=== PATIENT | male | born 1990 | race Caucasian/White ===

== ENCOUNTER → 2020-06-08 14:08 | Outpatient (CLI) | payer BC, SELFPAY ==
[2020-06-10 08:34] LABS: COVID19 Sendout Not Detected (Not Detect)
== END ==
PROVIDERS: Visit Provider Physician Assistant
DX: Z11.59 Encounter for screening for other viral diseases (principal)
CPT/HCPCS: 87635

== ENCOUNTER → 2020-10-20 16:22 | Outpatient (CLI) | payer OTHER, SELFPAY ==
--- NOTE | 2020-10-20 16:25 | DI.RAD.S_ITS ---
PROCEDURE: XR ANKLE RT MIN 3V INDICATIONS: Rolled ankle TECHNIQUE: 3 views of the ankle were acquired. COMPARISON: [facility], , ANKLE 3 VIEWS RIGHT, 05/10/2007, 9:42. FINDINGS: Bones: No acute fractures or dislocations. Likely old healed injury involving tip of medial malleolus is seen with well corticated fragments. Ankle mortise is normally aligned. No suspicious bony lesions. Soft tissues: Significant lateral ankle soft tissue swelling is seen. No tibiotalar joint effusion. Achilles tendon appears normal. IMPRESSION: No gross acute ankle fracture or dislocation. Moderate lateral ankle soft tissue swelling. Suggestion of old healed injuries involving tip of medial malleolus with corticated fragments. Dictated by: Isidoro Lozano M.D. on 10/20/2020 at 16:44 Approved by: Isidoro Lozano M.D. on 10/20/2020 at 16:45
== END ==
PROVIDERS: Referring Provider Physician Assistant; Visit Provider Physician Assistant
DX: M25.571 Pain in right ankle and joints of right foot (principal); M79.89 Other specified soft tissue disorders
CPT/HCPCS: 73610

== ENCOUNTER → 2024-09-15 16:59 | Outpatient (CLI) | payer BC, SELFPAY ==
--- NOTE | 2024-09-15 17:02 | DI.RAD.S_ITS ---
PROCEDURE: XR KNEE LT 3V INDICATIONS: Left knee pain TECHNIQUE: 3 views of the knee were acquired. COMPARISON: None. FINDINGS: Bones: No fractures or dislocations. No suspicious bony lesions. Soft tissues: No joint effusion. No suspicious soft tissue calcifications. Prepatellar swelling. IMPRESSION: No acute bony abnormality or significant effusion. Prepatellar soft tissue swelling. Dictated by: Benedict Aguilera M.D. on 09/15/2024 at 18:28 Approved by: Benedict Aguilera M.D. on 09/15/2024 at 18:30
== END ==
PROVIDERS: Referring Provider Nurse Practitioner Family; Visit Provider Nurse Practitioner Family
DX: M25.562 Pain in left knee (principal); M79.89 Other specified soft tissue disorders
CPT/HCPCS: 73562